=== PATIENT | male | born 1980 | race Two or more races ===

== ENCOUNTER 2018-05-14 13:54 | Emergency (ER) | payer SELFPAY ==
[2018-05-14 14:18] VITALS: BP 116/79; PULSE 71; TEMP 98.7; BMI 27.6
--- NOTE | 2018-05-14 14:37 | PDOC ---
History of Present Illness - General Chief Complaint: Eye Problem Stated Complaint: RED BURNING EYES Time Seen by Provider: 05/14/18 14:31 - History of Present Illness Initial Comments: 37-year-old male without comorbidities presents for evaluation of bilateral eye tearing and itchiness since last night. No trauma no associated symptoms no changes in vision. 05/14/18 14:34 Past History - Past Medical History Allergies/Adverse Reactions: Allergies Allergy/AdvReac Type Severity Reaction Status Date / Time No Known Allergies Allergy Verified 05/14/18 14:16 Home Medications: Ambulatory Orders Olopatadine HCl [Pataday] 1 drop OU DAILY #1 bottle 05/14/18 COPD: No - Immunization History Immunization Up to Date: Yes - Suicide/Smoking/Psychosocial Hx Smoking History: Never smoked Review of Systems - Review of Systems HEENTM: Yes: Tearing All Other Systems: Reviewed and Negative *Physical Exam - Vital Signs Last Vital Signs Temp Pulse Resp BP Pulse Ox 98.7 F 71 18 116/79 98 05/14/18 14:16 05/14/18 14:16 05/14/18 14:16 05/14/18 14:16 05/14/18 14:16 - Physical Exam Comments: HEAD: NC/AT EYES: Conjuntiva injected, EOMI, PERRL Ears: Canals and TM's normal NOSE: No d/c THROAT: Moist mucous membrances, oral pharanx clear, uvula midline NECK: Supple without adenopathy CARDIAC: S1 S2 LUNGS: CTA Full and Equal breath sounds ABDOMEN: Soft NT ND MS: Full ROM in all joints without edema NEUROLOGIC: No gross sensory or motor deficits, NVID SKIN: Normal color and temperature no lesions or rashes 05/14/18 14:35 Medical Decision Making - Medical Decision Making 05/14/18 14:35 Most likely an ALLERGIC conjunctivitis I will have him follow-up with ophthalmology Mast cell stabilizing eyedrops *DC/Admit/Observation/Transfer Diagnosis at time of Disposition: Allergic conjunctivitis - Discharge Dispostion Disposition: HOME Condition at time of disposition: Stable Decision to Admit order: No - Prescriptions Prescriptions: Olopatadine HCl [Pataday] 1 drop OU DAILY #1 bottle - Referrals Referrals: Kb Rdz MD [Staff Physician] - - Patient Instructions Printed Discharge Instructions: Conjunctivitis, DI for Conjunctivitis Additional Instructions: Please use the eyedrops as directed. Return to the emergency room should symptoms worsen or go unresolved. Follow-up with ophthalmology either today or tomorrow for further evaluation and treatment options. 20/50 OD, OU, OS - Post Discharge Activity
== END 2018-05-14 14:37 | disposition home or self-care (01) ==
LOC: JERFT 13:54
DX: H10.13 Acute atopic conjunctivitis, bilateral (principal)
CPT/HCPCS: 99281-25